=== PATIENT | female | born 1975 | race Caucasian/White ===

== ENCOUNTER 2017-08-24 04:32 | Emergency (ER) | payer OTHER ==
[~2017-08-24] VITALS: Ht 162.6 cm; Wt 61.2 kg
[2017-08-24 04:40] VITALS: Ht 162.6 cm; Wt 61.2 kg
[2017-08-24 06:42] VITALS: BP 115/63
== END 2017-08-24 06:42 | disposition home or self-care (01) ==
LOC: ED 04:32
DX: J11.1 Influenza due to unidentified influenza virus with other respiratory manifestations (principal); R19.7 Diarrhea, unspecified; R10.9 Unspecified abdominal pain; I10 Essential (primary) hypertension